=== PATIENT | female | born 1950 | race African-American/Black ===

== ENCOUNTER → 2018-11-13 | Outpatient (CLI) | payer MEDICARE, OTHER ==
--- NOTE | 2018-11-13 15:56 | KCIC ---
Complete abdominal ultrasound HISTORY: Right upper quadrant pain. FINDINGS: Pancreas appears unremarkable. Aorta is nonaneurysmal. Inferior vena cava is documented. There is an echogenic structure within the gallbladder with posterior shadowing, compatible with a gallstone. No significant gallbladder wall thickening. Liver contains multiple hypoechoic lesions, with sonographic appearance of cysts. Largest of these measures 1.9 cm. Right kidney measures 10.5 cm longitudinal with a 17 mm cyst. Left kidney measures 10.7 cm longitudinal with a 12 mm cyst, and another 9 mm cyst. Spleen is not enlarged. IMPRESSION: 1. Cholelithiasis. 2. Multiple small liver lesions most compatible with cysts. 3. Multiple renal lesions, most compatible with cysts. Electronically signed by: Cr Ford MD (11/13/2018 3:54 PM) [id number]
== END | disposition home or self-care (01) ==
LOC: KCIC US 10:01
PROVIDERS: ATTEND Family Medicine
DX: K80.20 Calculus of gallbladder without cholecystitis without obstruction (principal); K76.9 Liver disease, unspecified; N28.9 Disorder of kidney and ureter, unspecified
CPT/HCPCS: 76700

== ENCOUNTER → 2021-09-02 | Outpatient (CLI) | payer MEDICARE ==
--- NOTE | 2021-09-02 14:18 | KCIC ---
XR CHEST 2V INDICATION: ASTHMA COMPARISON STUDY: None. FINDINGS: Lungs: Normal lung volume. No pulmonary mass or consolidation. The tracheobronchial tree and hilar st ructures are normal. Pleura: No pleural effusion or pneumothorax. Heart and Mediastinum: The cardiomediastinal silhouette is normal. Atherosclerosis of the thoracic ao rta. Bones and Soft Tissues: Degenerative changes of the spine. IMPRESSION: No acute cardiopulmonary process. Electronically signed by: Manjeet Durant MD (09/02/2021 2:16 PM) [id number]
== END ==
LOC: KCIC 13:01
PROVIDERS: ATTEND Family Medicine
DX: J45.20 Mild intermittent asthma, uncomplicated (principal); I70.0 Atherosclerosis of aorta; M47.819 Spondylosis without myelopathy or radiculopathy, site unspecified
CPT/HCPCS: 71046